=== PATIENT | female | born 1980 | race Caucasian/White ===

== ENCOUNTER 2018-02-15 04:40 | Emergency (ER) | payer SELFPAY ==
[~2018-02-15] VITALS: Ht 172.7 cm; Wt 65.0 kg
[2018-02-15 04:54] VITALS: BP 114/66
[2018-02-15] MEDS ORDERED: LORA0.5T PO (05:15)
[2018-02-15] MEDS ORDERED: ONDANSETRON ODT 4 MG ONE (05:37)
[2018-02-15] MEDS ORDERED: ACETAMINOPHEN 500 MG TABLET PO ONE (06:00)
[2018-02-15] MEDS ORDERED: ONDANSETRON ODT 4 MG PO ONE (06:00)
== END 2018-02-15 07:52 | disposition home or self-care (01) ==
LOC: ED 05:00
DX: F10.120 Alcohol abuse with intoxication, uncomplicated (principal); R11.2 Nausea with vomiting, unspecified
CPT/HCPCS: 99283; Q0162